=== PATIENT | female | born 1965 | race Two or more races ===

== ENCOUNTER 2024-01-04 15:10 | Emergency (ER) | payer BC, OTHER ==
[~2024-01-04] VITALS: Ht 165.1 cm; Wt 73.4 kg
[2024-01-04 18:32] VITALS: BP 109/77; PULSE 82; RESP 15; TEMP 98.2; O2SAT 97
[2024-01-04] MEDS ORDERED: ACYC1TAB3 PO (19:06)
[2024-01-04] MEDS: IBUPROFEN 600 MG TAB PO ONE (20:02)
== END 2024-01-04 20:14 | disposition home or self-care (01) ==
LOC: ER 15:10
DX: B02.9 Zoster without complications (principal); I10 Essential (primary) hypertension; E78.5 Hyperlipidemia, unspecified

== ENCOUNTER 2024-10-03 17:19 | Emergency (ER) | payer BC ==
[~2024-10-03 17:19] MED LIST: ACYC1TAB3 PO
[2024-10-03] MEDS ORDERED: NAP500T PO (22:33)
[2024-10-03] MEDS ORDERED: BACDST PO (22:33)
== END 2024-10-03 18:12 | disposition left against medical advice (07) ==
LOC: ER 17:19
DX: M79.606 Pain in leg, unspecified (principal); Z53.21 Procedure and treatment not carried out due to patient leaving prior to being seen by health care provider

== ENCOUNTER 2024-10-03 20:13 | Emergency (ER) | payer BC ==
[~2024-10-03] VITALS: Ht 165.1 cm; Wt 73.4 kg
--- NOTE | 2024-10-03 21:55 | DVH ---
Right lower extremity venous duplex Clinical History: REDNESS AND SWELLING Comparison: None Technique: Duplex Doppler evaluation of the deep venous system of the right lower extremity from the common femo ral vein to the popliteal vein including color Doppler and spectral/pulsed waveform analysis was perf ormed. Findings: The common femoral vein demonstrates appropriate compressibility and waveform variability . There is compressibility/patency of the great saphenous vein at the proximal thigh . The femoral vein demonstrates appropriate compressibility and waveform variability . The deep femoral vein demonstrates appropriate compressibility and waveform variability . The popliteal vein demonstrates appropriate compressibility and waveform variability . There is normal compressibility at the tibioperoneal trunk. Impression: No right femoropopliteal deep venous thrombosis. [employer] no superficial occlusive thrombus along the anterior puckett region. If clinical concern/symptoms persist or worsen, short-interval follow-up study is suggested.
[2024-10-03] MEDS ORDERED: BACDST PO (22:33)
[2024-10-03] MEDS ORDERED: NAP500T PO (22:33)
--- NOTE | 2024-10-03 22:34 | ED.PDOC ---
Musculoskeletal HPI Comments 59-year-old female complaining of right lower leg pain. Patient states the pain redness and swelling started approximate 3-4 days ago. Has a history of varicose veins. States the pain and swelling started over one of her varicose veins. Patient concerned for possible blood clot as she was had blood clots in the past. States last time she had pulling he was in 1980s. Currently in on no blood thinners. Chief Complaint: Lower Extremity Time Seen by MD: 21:21 Primary Care Provider: NONE Reviewed Notes: Nurses Notes Allergies: Coded Allergies: NO KNOWN ALLERGIES (Unverified , 01/04/24) Home Meds Active Scripts Acyclovir (Acyclovir) 800 Mg Tab, 800 MG PO 5XD for 7 Days, #35 TAB Prov:IGLESIA CRAFT PAC 01/04/24 Information Source: Patient Mode of Arrival: Ambulatory Location: Right Extremity Location: Leg Past Medical History PAST MEDICAL HISTORY: High Lipids, HTN Surgical History: Denies all surgeries [place] MAN History: No Pertinent [place] MAN History Family History Family History: Reviewed,noncontributory to illness Social History Smoker: Non-Smoker Alcohol: Denies ETOH Use Drugs: Denies Drug Use Constitutional: denies: chills, diaphoresis, fatigue, fever, malaise, sweats, weakness, others EENTM: denies: blurred vision, double vision, ear bleeding, ear discharge, ear drainage, ear pain, ear ringing, eye pain, eye redness, hearing loss, mouth pain, mouth swelling, nasal discharge, nose bleeding, nose congestion, nose pain, photophobia, tearing, throat pain, throat swelling, voice changes, others Respiratory: denies: cough, hemoptysis, orthopnea, SOB at rest, shortness of breath, SOB with excertion, stridor, wheezing, others Cardiovascular: denies: chest pain, dizzy spells, diaphoresis, Dyspnea on exertion, edema, irregular heart beat, left arm pain, lightheadedness, palpitations, PND, syncope, others Gastrointestinal: denies: abdomen distended, abdominal pain, blood streaked bowels, constipated, diarrhea, dysphagia, difficulty swallowing, hematemesis, melena, nausea, poor appetite, poor fluid intake, rectal bleeding, rectal pain, vomiting, others Genitourinary: denies: abnormal vagina bleeding, burning, dyspareunia, dysuria, flank pain, frequency, hematuria, incontinence, pain, , vagina discharge, urgency, others Neurological: denies: dizziness, fainting, headache, left sided numbness, left sided weakness, numbness, paresthesia, pre-existing deficit, right sided numbness, right sided weakness, seizure, speech problems, tingling, tremors, weakness, others Musculoskeletal: reports: joint swelling; denies: back pain, gout, joint pain, muscle pain, muscle stiffness, neck pain, others Integumetry: denies: bruises, change in color, change in hair/nails, dryness, laceration, lesions, lumps, rash, wounds, others Allergic/Immunocompromised: denies: Difficulty Healing, Frequent Infections, Hives, Itching, others Physical Exam General Appearance: No Apparent Distress, Normal HEENT: Normal ENT Inspection, Pharynx Normal, TMs Normal Neck: Full Range of Motion, Non-Tender, Normal, Normal Inspection Respiratory: Chest Non-Tender, Lungs Clear, No Accessory Muscle Use, No Respiratory Distress, Normal Breath Sounds Cardiovascular: No Edema, No JVD, No Murmur, No Gallop, Normal Peripheral Pulses, Regular Rate/Rhythm Breast Exam: Deferred Gastrointestinal: No Organomegaly, Non Tender, No Pulsatile Mass, Normal Bowel Sounds, Soft Genitalia: Deferred Pelvic: Deferred Rectal: Deferred Extremities: No calf tenderness, Normal capillary refill, Swelling (Swelling noted in the right lower leg. Over the anterior leg. Redness does extend over one of her varicose veins. Areas warm and tender to the touch.) Musculoskeletal : Apperance: Normal Neurologic: Alert, publishing specialist II-XII nml as Tested, No Motor Deficits, Normal Affect, Normal Mood, No Sensory Deficits Cerebellar Function: Normal Reflexes: Normal Skin: Dry, Normal Color, Warm Lymphatic: No Adenopathy Was a procedure done? Was a procedure done?: No Differential Diagnosis EXT Differential Diagnosis: Cellulitis, Deep Vein Thrombosis, Fracture, Sprain, Dislocation X-Ray, Labs, Meds, VS Vital Signs Date Time Temp Pulse Resp B/P (MAP) Pulse Ox O2 Delivery O2 Flow Rate FiO2 10/03/24 20:30 100.0 100 16 147/95 (112) 96 X-Ray, Labs, Meds, VS Comment Imaging: X-rays and CT scans were reviewed and interpreted by this provider, imaging shows no fractures and no pathological disease. Pending radiology review. Laboratory: Labs reviewed and interpreted by this provider. No significant abnormalities noted. Patient has prior medical visits reviewed. Med reconciliation performed Vital signs reviewed Lower leg ultrasound negative for DVT Time of 1ST Reevaluation: 22:33 Reevaluation 1ST: Unchanged Patient Education/Counseling: Diagnosis, Treatment, Need For Follow Up (Patient advised to follow-up in the emergency room in the next 24 to 48 hours if symptoms do not improve. Advised follow-up with PCP in the next 3 to 5 days. Patient verbalized understanding. ) Family Education/Counseling: Diagnosis Departure 1 Departure Time of Disposition: 22:30 Impression: Primary Impression: Cellulitis Qualified Codes: L03.115 - Cellulitis of right lower limb Additional Impression: Varicose vein of leg Qualified Codes: I83.11 - Varicose veins of right lower extremity with inflammation Disposition: HOME / SELF CARE / HOMELESS Condition: Stable e-Prescriptions Naproxen (NAPROSYN TABLET) 500 Mg Tb 1 TAB PO BID for 19 Days, #38 TAB Prov: DORITA MICHELLE 10/03/24 Sulfamethoxazole W/Trimethopri (Bactrim Ds Tablet) 1 Tab Tb 1 TAB PO BID for 10 Days, #20 TAB Prov: DORITA MICHELLE 10/03/24 Discharged With: Self Critical Care Note Critical Care Time?: No Stability Stability form required: No Heart Score Heart Score: Heart Score Response (Comments) Value History N/A 0 EKG N/A 0 Age N/A 0 Risk Factors N/A 0 Troponin N/A 0 Total 0 DORITA MICHELLE Oct 03, 2024 22:34
[2024-10-04 01:02] VITALS: BP 139/82; PULSE 96; RESP 16; O2SAT 96
== END 2024-10-04 01:03 | disposition home or self-care (01) ==
LOC: ER 20:13
DX: L03.115 Cellulitis of right lower limb (principal); I83.91 Asymptomatic varicose veins of right lower extremity; I10 Essential (primary) hypertension; R78.5 Finding of other psychotropic drug in blood
CPT/HCPCS: 93971